=== PATIENT | male | born 1995 | race Caucasian/White ===

== ENCOUNTER 2017-07-18 16:26 | Emergency (ER) | payer SELFPAY ==
[~2017-07-18] VITALS: Ht 162.6 cm; Wt 65.0 kg
[~2017-07-18 16:26] MED LIST: AMOXICILLIN500 MG PO; CIPROFLOXACN500 MG PO; FLEXERIL PO; FLONASE NASAL50 MCG; LORATADINE PO; NASONEX50 MCG/AC; OMEPRAZOLE20 MG PO; TRIAM/NYSTA1 EX; ULTRAM50 M1 PO; ULTRAM50 MG PO
[2017-07-18] MEDS ORDERED: MOTRIN800 MG PO (16:54)
[2017-07-18] MEDS ORDERED: TRAMADOL HYDROC50 MG PO (16:54)
[2017-07-18] MEDS ORDERED: FLEXERIL PO (16:54)
[2017-07-18 17:00] VITALS: BP 139/79
== END 2017-07-18 17:00 | disposition home or self-care (01) | DRG 74 ==
LOC: ED 16:26
DX: G57.12 Meralgia paresthetica, left lower limb (principal); F17.210 Nicotine dependence, cigarettes, uncomplicated; M54.5 Low back pain; W20.8XXA Other cause of strike by thrown, projected or falling object, initial encounter

== ENCOUNTER 2017-11-13 09:43 | Emergency (ER) | payer SELFPAY ==
[~2017-11-13] VITALS: Ht 162.6 cm; Wt 61.0 kg
[~2017-11-13 09:43] MED LIST changes: +MOTRIN800 MG PO; +TRAMADOL HYDROC50 MG PO
[2017-11-13 10:52] LABS: URINE BILIRUBIN - DIPSTICK NEGATIVE (NEGATIVE); URINE BLOOD DIPSTICK NEGATIVE (NEGATIVE); URINE CLARITY CLEAR; URINE COLOR YELLOW; URINE GLUCOSE - DIPSTICK NEGATIVE (NEGATIVE); URINE KETONE NEGATIVE (NEGATIVE); URINE LEUK ESTERASE NEGATIVE (NEGATIVE); URINE NITRITE - DIPSTICK NEGATIVE (Negative); URINE PROTEIN - DIPSTICK NEGATIVE (NEG-TRACE); URINE UROBILINOGEN - DIPSTICK 0.2 E.U./dL (0.2)
[2017-11-13 10:53] LABS: BARBITURATES NEGATIVE (NEGATIVE); COCAINE NEGATIVE (NEGATIVE); METHADONE NEGATIVE (NEGATIVE); TETRAHYDROCANNABIONOL POSITIVE (NEGATIVE); TRICYLIC ANTIDEPRESSANTS NEGATIVE (NEGATIVE)
[2017-11-13 10:54] LABS: OXCYCODONE POSITIVE (NEGATIVE)
[2017-11-13 10:58] VITALS: BP 125/82
[2017-11-13] MEDS ORDERED: ONDANSETRON4 MG PO (11:17)
== END 2017-11-13 11:26 | disposition home or self-care (01) | DRG 897 ==
LOC: ED 09:43
PROVIDERS: Family Medicine
DX: F11.23 Opioid dependence with withdrawal (principal); F17.210 Nicotine dependence, cigarettes, uncomplicated

== ENCOUNTER 2019-05-27 18:04 | Emergency (ER) | payer MEDICAID ==
[~2019-05-27] VITALS: Ht 152.4 cm; Wt 61.0 kg
[~2019-05-27 18:04] MED LIST changes: +ONDANSETRON4 MG PO
[2019-05-27] MEDS ORDERED: ZOFRAN4 MG/TAB PO (18:41)
[2019-05-27 18:50] VITALS: BP 141/84
[2019-05-27] MEDS ORDERED: BUPRENORPHINE H1 MI2 SL (18:52)
== END 2019-05-27 18:50 | disposition home or self-care (01) ==
LOC: ED 18:04
DX: R11.0 Nausea (principal); F17.210 Nicotine dependence, cigarettes, uncomplicated

== ENCOUNTER 2020-05-24 17:24 | Emergency (ER) | payer MEDICAID ==
[~2020-05-24] VITALS: Ht 162.6 cm; Wt 60.0 kg
[~2020-05-24 17:24] MED LIST changes: +BUPRENORPHINE H1 MI2 SL; +ZOFRAN4 MG/TAB PO
[2020-05-24 18:39] VITALS: BP 128/70
== END 2020-05-24 18:39 | disposition home or self-care (01) ==
LOC: ED 17:24
DX: S63.91XA Sprain of unspecified part of right wrist and hand, initial encounter (principal); F17.200 Nicotine dependence, unspecified, uncomplicated; W51.XXXA Accidental striking against or bumped into by another person, initial encounter

== ENCOUNTER 2022-02-09 12:16 | Emergency (ER) | payer MEDICAID ==
[2022-02-09] VITALS (7 sets, daily range): BP systolic 117–143; BP diastolic 82–91
[~2022-02-09] VITALS: Ht 162.6 cm; Wt 65.0 kg
[2022-02-09] MEDS ORDERED: ACULAR0.5 % OD (15:16)
[2022-02-09] MEDS ORDERED: OFLOXACIN0.3 % OD (15:16)
[2022-02-09] MEDS ORDERED: CIPROFLOXACN500 MG PO (15:57)
== END 2022-02-09 16:28 | disposition home or self-care (01) ==
LOC: ED 12:16
DX: H57.11 Ocular pain, right eye (principal); F17.210 Nicotine dependence, cigarettes, uncomplicated; W60.XXXA Contact with nonvenomous plant thorns and spines and sharp leaves, initial encounter

== ENCOUNTER 2023-07-23 18:20 | Emergency (ER) | payer SELFPAY ==
[~2023-07-23] VITALS: Ht 165.1 cm; Wt 65.0 kg
[~2023-07-23 18:20] MED LIST changes: +ACULAR0.5 % OD; +KEFLEX500 MG PO; +OFLOXACIN0.3 % OD
[2023-07-23] MEDS ORDERED: VIBRAMYCIN100 M2 PO (22:56)
[2023-07-23 23:12] VITALS: BP 119/75
== END 2023-07-23 23:12 | disposition home or self-care (01) | DRG 728 ==
LOC: ED 18:20
DX: A64 Unspecified sexually transmitted disease (principal); N50.812 Left testicular pain; F17.200 Nicotine dependence, unspecified, uncomplicated